=== PATIENT | male | born 1950 | race Caucasian/White ===

== ENCOUNTER 2018-11-26 08:52 | Day surgery (SDC) | payer BC ==
[2018-11-26 09:10] VITALS: BMI 23.6
[2018-11-26 09:25] VITALS: TEMP 97.8
[2018-11-26] MEDS ORDERED: Lactated Ringer's 1,000 ML IV ONE (10:45)
[2018-11-26] MEDS ORDERED: Propofol 10 mg/ml Inj (20 ML) ONE (10:50)
[2018-11-26] MEDS ORDERED: Simethicone 40 mg/0.6 ml Liquid (30 ml) ONE (10:59)
[2018-11-26 12:21] VITALS: BP 122/67; PULSE 66; RESP 13; O2SAT 99
== END 2018-11-26 12:19 | disposition home or self-care (01) ==
LOC: C.ENDO 08:52
PROVIDERS: ATTEND Internal Medicine Gastroenterology
DX: Z12.11 Encounter for screening for malignant neoplasm of colon (principal); K64.1 Second degree hemorrhoids
CPT/HCPCS: 45378; J2704; J7120